=== PATIENT | male | born 1970 | race Caucasian/White ===

== ENCOUNTER 2019-10-24 08:27 | Emergency (ER) | payer BC ==
[~2019-10-24] VITALS: Ht 177.8 cm; Wt 77.6 kg
[2019-10-24 08:30] VITALS: BP 134/58
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
--- NOTE | 2019-10-24 08:51 | NUR ---
RADIOLOGY AT BEDSIDE
--- NOTE | 2019-10-24 09:26 | NUR ---
DR RODRIGUEZ AT BEDSIDE EXAMINING PT
--- NOTE | 2019-10-24 09:36 | NUR ---
POSTERIOR SHORT LEG SPLINT APPLIED TO PT RT LEG BY OMAYRA GUPTA. +CMS AND +PULSES S/P PLACEMENT. PT VERBALIZES UNDERSTANDING OF CRUTCH USE AND PERFORMS RETURN DEMONSTRATION.
--- NOTE | 2019-10-24 09:37 | NUR ---
applied posterior short leg splint to right leg without any issues. pt demonstrated proper use of crutches
[2019-10-24 09:56] VITALS: BP 124/68
--- NOTE | 2019-10-24 09:57 | NUR ---
Patient discharged with v/s stable. Written and verbal after care instructions given and explained. Patient alert, oriented and verbalized understanding of instructions. Ambulatory with steady gait WITH CRUTCH USE. All questions addressed prior to discharge. ID band removed. Patient advised to follow up with PMD. Rx of MOTRIN given. Patient educated on indication of medication including possible reaction and side effects. Opportunity to ask questions provided and answered.
== END 2019-10-24 09:57 | disposition home or self-care (01) ==
LOC: MED 08:27 → EEVIPCON 08:27 → MED 09:57
DX: S82.61XA Displaced fracture of lateral malleolus of right fibula, initial encounter for closed fracture (principal); F12.90 Cannabis use, unspecified, uncomplicated; V87.8XXA Person injured in other specified noncollision transport accidents involving motor vehicle (traffic), initial encounter; Y93.89 Activity, other specified; Y92.89 Other specified places as the place of occurrence of the external cause; Y99.8 Other external cause status
CPT/HCPCS: 29515; 73610; 73630; 99284; Q0092

== ENCOUNTER 2021-12-07 02:12 | Emergency (ER) | payer BC ==
[~2021-12-07] VITALS: Ht 177.8 cm; Wt 76.7 kg
[2021-12-07 02:20] VITALS: BP 125/82
--- NOTE | 2021-12-07 02:20 | NUR ---
TO BED AMBULATORY
--- NOTE | 2021-12-07 02:37 | NUR ---
51 Y.O. M C/O HIGH BLOOD SUGAR , ON AND OFF FOR YEARS, SICK LAST WEEK. PT STATES HAS SOB AND CONGESTION AFTER BEING SICK. DENIES PAIN. FATIGUED. IN TRIAGE BS 130. VITALS WNL, A. &OX4, NO CHEST PAIN, SKIN INTACT
[2021-12-07] MEDS ORDERED: HYDR-637 PO (03:46)
--- NOTE | 2021-12-07 03:51 | NUR ---
pt st he feels really anxious , feels sob. applied 2L oxygen via nasal cannula. turned off lights . pt resting in bed
[2021-12-07 05:35] VITALS: BP 125/82
--- NOTE | 2021-12-07 05:37 | NUR ---
Patient discharged with v/s stable. Written and verbal after care instructions given and explained. Patient alert, oriented and verbalized understanding of instructions. Ambulatory with steady gait. All questions addressed prior to discharge. ID band removed. Patient advised to follow up with PMD. Rx of HYDROXYZINE HCL given. Patient educated on indication of medication including possible reaction and side effects. Opportunity to ask questions provided and answered.
== END 2021-12-07 05:38 | disposition home or self-care (01) ==
LOC: MED 02:12
DX: F41.9 Anxiety disorder, unspecified (principal); F12.90 Cannabis use, unspecified, uncomplicated; Z79.899 Other long term (current) drug therapy
CPT/HCPCS: 99283